=== PATIENT | female | born 1955 | race Caucasian/White ===

== ENCOUNTER 2024-11-29 14:02 | Emergency (ER) | payer OTHER, SELFPAY ==
[2024-11-29 14:09] VITALS: BP 171/94
[2024-11-29 14:37] LABS: INR 0.84; PT 11.8 Sec (11.4-14.6)
[2024-11-29 14:43] LABS: ALT (SGPT) 21 U/L (0-35); AST (SGOT) 21 U/L (14-36); Albumin 4.8 g/dl (3.5-5.0); Alkaline Phosphatase 133 U/L (38-126); Blood Urea Nitrogen 23 mg/dl (7-17); Carbon Dioxide 20 mmol/L (22-30); Chloride 109 mmol/L (98-107); Glucose 165 mg/dl (70-99); Potassium 4.1 mmol/L (3.5-5.1); Sodium 137 mmol/L (135-145); Total Bilirubin 0.7 mg/dl (0.2-1.3); Total Protein 7.3 g/dl (6.3-8.2); eGFR > 60.00
[2024-11-29 15:01] LABS: NT-proBNP 136 pg/ml; Troponin I 0.012 ng/ml
[2024-11-29 16:00] VITALS: BP 120/79
[2024-11-29 16:00] LABS: % Basophils 0.6 % (0-2); % Eosinophils 1.3 % (0-6); % Immature Granulocytes 0.2 % (0-0.5); % Lymphocytes 28.7 % (20.5-51.1); % Monocytes 9.2 % (1.7-9.3); Absolute Basophils 0.1 10^3/uL (0-0.2); Absolute Eosinophils 0.1 10^3/uL (0-0.7); Absolute Lymphocytes 2.4 10^3/uL (1.2-3.4); Absolute Monocytes 0.8 10^3/uL (0.1-0.6); Hematocrit 39.4 % (37.0-47.0); Hemoglobin 14.1 g/dL (12.0-16.0); Mean Corp Hgb Conc. 35.8 g/dL (33.0-37.0); Mean Corpuscular Hgb 30.7 pg (27.0-31.0); Mean Corpuscular Volume 85.8 fL (81.0-99.0); Mean Platelet Volume 10.7 fL (7.4-10.4); Nucleated Red Blood Cells % 0 %; Platelet Count 197 10^3/uL (130-400); Red Blood Cell Count 4.59 10^6/uL (4.20-5.40); Red Cell Dist. Width 12.8 % (11.5-14.5); White Blood Cell Count 8.3 10^3/uL (4.8-10.8)
--- NOTE | 2024-11-29 16:30 | ED.GENMED ---
History of Present Illness
<Juan Malave PA-C - Last Filed: 11/30/24 16:07>
General
Chief Complaint: Chest Pain
Time Seen by Provider: 11/29/24 15:25
History of Present Illness
History of Present Illness:
69-year-old female with history of hyperlipidemia and hypertension presents the emergency department for evaluation of sudden onset of central chest pain beginning approximate 90 minutes prior to arrival. She describes a squeezing tightness
sensation, no pleuritic pain or no radiation of pain to the back. She also reports mild headache and nausea. Has never experienced similar symptoms. Was not exerting herself at the time of onset of symptoms. No recent fevers or chills. No
recent nausea or vomiting, denies any recent viral URI. Former smoker quit 5 years ago
Past History
<Juan Malave PA-C - Last Filed: 11/30/24 16:07>
Past History
ED Past Medical History: GERD and Hypercholesterolemia
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
Social History
Tobacco: Smoker
Alcohol: Occasional
Personal:
Living: with family
Employment: Employed
Review of Systems
<Juan Malave PA-C - Last Filed: 11/30/24 16:07>
Review of Systems
Allergies reviewed?: Yes
All Other Systems: ROS reviewed and negative except as documented in HPI and ROS
Phy Exam
<Juan Malave PA-C - Last Filed: 11/30/24 16:07>
Physical Exam
Physical Exam:
GEN: Appears uncomfortable holding her left hand over the chest
HEENT: Oral mucosa moist, no scleral icterus
Cardiac: Regular rate and rhythm, no murmur
Lung: No respiratory distress, no tachypnea, lungs clear to auscultation bilaterally
MSK: No gross deformity or injuries
Skin: Good color, no pallor or jaundice, no rashes
Neuro: AO x3, moves all extremities freely
Psych: Calm, cooperative
Scores
<Juan Malave PA-C - Last Filed: 11/30/24 16:07>
Heart Score for Chest Pain Patients
Heart Score for Chest Pain Patients: 3
Heart Score Risk: 2.5% MACE over next 6 weeks
<Rogelio Bellamy PA-C - Last Filed: 11/29/24 18:29>
Heart Score for Chest Pain Patients
STEMI patient?: No
History: Slightly or Non-Suspicious
ECG: Normal
Age: >/= 65 years
Risk Factors: 1 or 2 Risk Factors
Troponin: </= Normal Limit
Heart Score for Chest Pain Patients: 3
Heart Score Risk: 2.5% MACE over next 6 weeks
Course
<Juan Malave PA-C - Last Filed: 11/30/24 16:07>
Orders/Labs/Results
Orders:
Orders
11/29/24
Electrocardiogram (*1) Stat
Reason for Study: Chest Pain
Comment: DONE NO ORDER ENTERED
11/29/24 14:20
Comprehensive Metabolic Panel Urgent
NT-proBNP Urgent
PT/INR [Prothrombin Time] Urgent
Troponin I Urgent
11/29/24 15:31
EKG- Treatment ONCE
11/29/24 15:32
CR Chest - 2 Views Urgent
Comment:
Reason For Exam: chest pain
11/29/24 15:46
Complete Blood Count/With Diff Routine
D-Dimer Urgent
11/29/24 16:30
Electrocardiogram (*1) Urgent
Reason for Study: Chest Pain
11/29/24 16:54
Troponin I Urgent
Abnormal Lab Results
11/29/24 11/29/24
14:20 15:46
MPV 10.7 H fL
(7.4-10.4)
Absolute Monos (auto) 0.8 H 10^3/uL
(0.1-0.6)
Chloride 109 H mmol/L
(98-107)
Carbon Dioxide 20 L mmol/L
(22-30)
BUN 23 H mg/dl
(7-17)
Glucose 165 H mg/dl
(70-99)
Alkaline Phosphatase 133 H U/L
(38-126)
11/29/24 15:46
11/29/24 14:20
Vital Signs
Initial and Last Documented VS:
Initial Vital Signs
Temp Pulse Resp BP Pulse Ox
98.4 F 104 16 171/94 98
11/29/24 14:09 11/29/24 14:09 11/29/24 14:09 11/29/24 14:09 11/29/24 14:09
Last Documented Vital Signs
Temp Pulse Resp BP Pulse Ox
98.4 F 79 25 145/93 98
11/29/24 14:09 11/29/24 17:45 11/29/24 17:45 11/29/24 17:00 11/29/24 17:45
<Rogelio Bellamy PA-C - Last Filed: 11/29/24 18:29>
Orders/Labs/Results
Orders:
Orders
11/29/24
Electrocardiogram (*1) Stat
Reason for Study: Chest Pain
Comment: DONE NO ORDER ENTERED
11/29/24 14:20
Comprehensive Metabolic Panel Urgent
NT-proBNP Urgent
PT/INR [Prothrombin Time] Urgent
Troponin I Urgent
11/29/24 15:31
EKG- Treatment ONCE
11/29/24 15:32
CR Chest - 2 Views Urgent
Comment:
Reason For Exam: chest pain
11/29/24 15:46
Complete Blood Count/With Diff Routine
D-Dimer Urgent
11/29/24 16:30
Electrocardiogram (*1) Urgent
Reason for Study: Chest Pain
11/29/24 16:54
Troponin I Urgent
Abnormal Lab Results
11/29/24 11/29/24
14:20 15:46
MPV 10.7 H fL
(7.4-10.4)
Absolute Monos (auto) 0.8 H 10^3/uL
(0.1-0.6)
Chloride 109 H mmol/L
(98-107)
Carbon Dioxide 20 L mmol/L
(22-30)
BUN 23 H mg/dl
(7-17)
Glucose 165 H mg/dl
(70-99)
Alkaline Phosphatase 133 H U/L
(38-126)
11/29/24 15:46
11/29/24 14:20
Vital Signs
Initial and Last Documented VS:
Initial Vital Signs
Temp Pulse Resp BP Pulse Ox
98.4 F 104 16 171/94 98
11/29/24 14:09 11/29/24 14:09 11/29/24 14:09 11/29/24 14:09 11/29/24 14:09
Last Documented Vital Signs
Temp Pulse Resp BP Pulse Ox
98.4 F 79 25 145/93 98
11/29/24 14:09 11/29/24 17:45 11/29/24 17:45 11/29/24 17:00 11/29/24 17:45
<Juan Malave PA-C - Last Filed: 11/30/24 16:07>
MDM/Problems Addressed
MDM/Problems Addressed:
69 yo female presents w/ acute chest pain. Symptoms gradually improved throughout ED stay w/o medications given. Initial workup unrevealing. She has cardiology follow up in 9 days. Will repeat troponin, signed out to reginald Bellamy PA-C pending dispo
<Juan Malave PA-C - Last Filed: 11/30/24 16:07>
Comment
Comment:
EKG independently interpreted by me shows a mild sinus tachycardia with no ST changes concerning for ischemia
<Rogelio Bellamy PA-C - Last Filed: 11/29/24 18:29>
*Critical Care Note
Total Time (30-74mins, 75-104mins- exclusive of procedures): Not Applicable
<Rogelio Bellamy PA-C - Last Filed: 11/29/24 18:29>
Patient Management
Escalation/DeEscalation of care consider admission/obs:
Patient received in signout pending repeat troponin. Repeat troponin is negative. Patient maintains her chest pain has been steadily improving since arrival to the ER. She has a follow-up visit already scheduled with Dr. Wilson from cardiology in
9 days. Discussed return precautions to the ER. Stable for discharge home.
ED Attending Note
<Juan Malave PA-C - Last Filed: 11/30/24 16:07>
-
Portions of this chart may have been created with voice recognition software.� Occasional wrong word or��sound alike� substitutions may have occurred due to the inherent limitations of voice recognition software.
Discharge Plan
Departure
Patient Disposition: Home (Routine Discharge)
Date of Disposition: 11/29/24
Time of Disposition: 18:12
Patient with high blood pressure during this ER visit?: Yes
Discharge Problem:
Chest pain
Instructions: Chest pain - Discharge instructions
Prescriptions:
No Action
simvastatin 20 MG tablet
20 mg PO HS
omeprazole 20 MG capsule,delayed release(DR/EC)
20 mg PO DAILY
ibuprofen 200 MG tablet
400 mg PO Q6HPRN PRN (Reason: mild pain)
fluticasone propionate 1 SPRAY spray,suspension
1 spray intranasal DAILYPRN PRN (Reason: congestion)
Referrals:
Neo Mane DO [Family Provider, Family Practice]
Interventions
Interventions:
*Risk Screen - Suicide Last Done: 11/29/24 14:09
*General Assessment Last Done: 11/29/24 14:09
*Neglect/Abuse Screening Last Done: 11/29/24 14:09
*ED- Fall Risk Assessment Last Done: 11/29/24 14:09
*ED COVID-19 Vaccine History Last Done: 11/29/24 14:09
*Nursing Disposition Last Done: 11/29/24 18:17
ED- Cardiac Assessment Last Done: 11/29/24 15:36
Discharge Date and Time
Discharge Date/Time: 11/29/24 18:38
Print Language: GIBRALTARIAN
[2024-11-29 16:39] VITALS: BP 137/90
[2024-11-29 17:00] VITALS: BP 145/93
[2024-11-29 17:53] LABS: Troponin I < 0.012 ng/ml
== END 2024-11-29 18:38 | disposition home or self-care (01) ==
LOC: EMR 14:02
PROVIDERS: Emergency Medicine; Physician Assistant; EMERGENCY PHYSICIAN Emergency Medicine; FAMILY PHYSICIAN Family Medicine
DX: R07.89 Other chest pain (principal); R51.9 Headache, unspecified; R11.0 Nausea; E78.00 Pure hypercholesterolemia, unspecified; K21.9 Gastro-esophageal reflux disease without esophagitis; I10 Essential (primary) hypertension; F17.200 Nicotine dependence, unspecified, uncomplicated; Z88.1 Allergy status to other antibiotic agents
CPT/HCPCS: 99284; 71046; 80053; 83880; 84484; 85025; 85379; 85610; 93005

== ENCOUNTER → 2024-12-22 12:48 | Outpatient (REF) | payer OTHER, SELFPAY | LOC: DHSLP 12:48 | PROVIDERS: ATTENDING PHYSICIAN Internal Medicine Cardiovascular Disease; FAMILY PHYSICIAN Family Medicine | DX: G47.33 Obstructive sleep apnea (adult) (pediatric) (principal) | CPT/HCPCS: 95800 ==

== ENCOUNTER → 2024-12-25 09:29 | Outpatient (REF) | payer OTHER, SELFPAY | LOC: RCS 09:29 | PROVIDERS: ATTENDING PHYSICIAN Internal Medicine Cardiovascular Disease; FAMILY PHYSICIAN Family Medicine | DX: E78.2 Mixed hyperlipidemia (principal) | CPT/HCPCS: 93017 ==